=== PATIENT | male | born 1985 | race Caucasian/White ===

== ENCOUNTER 2018-11-25 09:29 | Emergency (ER) | payer SELFPAY ==
[~2018-11-25] VITALS: Ht 190.5 cm; Wt 91.1 kg
[2018-11-25 09:29] VITALS: BP 131/75
[2018-11-25] MEDS ORDERED: NEOMSUS OP (10:16)
== END 2018-11-25 10:38 | disposition home or self-care (01) ==
LOC: M ED 09:29
DX: H10.33 Unspecified acute conjunctivitis, bilateral (principal)